=== PATIENT | female | born 1960 | race Caucasian/White ===

== ENCOUNTER → 2018-09-26 | Outpatient (CLI) | payer BC ==
[~2018-09-26] MED LIST: CONESTTC PV; DHEA PO; FLUO10 PO; IBUP600 PO; LEVSOD25 PO; META800 PO; Prednisone20 MG PO; VENL25
[2018-09-28 15:07] LABS: HPV 16 Negative (Negative); HPV 18 Negative (Negative); HPV OTHER HR TYPES Negative (Negative)
== END ==
LOC: LAB 11:54 → LAB SHORT 11:54
PROVIDERS: Nurse Practitioner Obstetrics & Gynecology
DX: Z01.419 Encounter for gynecological examination (general) (routine) without abnormal findings (principal)
CPT/HCPCS: 87624; G0123

== ENCOUNTER → 2019-11-19 | Outpatient (CLI) | payer BC ==
[2019-11-19 13:47] LABS: BASOPHILS ABSOLUTE AUTO 0.04 K/mm3 (0.00-0.23); BASOPHILS PERCENT AUTO 0 % (0-2); EOSINOPHILS ABSOLUTE AUTO 0.02 K/mm3 (0.00-0.68); EOSINOPHILS PERCENT AUTO 0 % (0-6); Hemoglobin 13.1 g/dL (11.5-16.0); IMMATURE GRAN ABSOLUTE AUTO 0.03 K/mm3 (0.00-0.10); IMMATURE GRAN PERCENT AUTO 0 % (0-1); LYMPHOCYTES ABSOLUTE AUTO 0.88 K/mm3 (0.84-5.20); LYMPHOCYTES PERCENT AUTO 7 % (21-46); MONOCYTES ABSOLUTE AUTO 1.02 K/mm3 (0.16-1.47); MONOCYTES PERCENT AUTO 8 % (4-13); Mean Corpuscular HGB Conc 33.6 g/dL (31.5-36.5); Mean Corpuscular Volume 89 fL (80-100); Mean Platelet Volume 10.5 fL (9.1-12.4); NEUTROPHILS ABSOLUTE AUTO 11.06 K/mm3 (1.96-9.15); NEUTROPHILS PERCENT AUTO 85 % (41-73); Platelet Count 207 K/mm3 (150-400); RDW Coefficient Variation 12.2 % (11.7-14.2); RDW Standard Deviation 39.3 fL (35.1-46.3); Red Blood Cell Count 4.37 M/mm3 (3.80-5.20); White Blood Cell Count 13.05 K/mm3 (4.00-11.30)
[2019-11-19 14:00] LABS: Anion Gap 8 mmol/L (6-16); Blood Urea Nitrogen 11 mg/dL (8-24); Bun/Creatinine Ratio 14.3 (12.0-20.0); CO2, Blood 27 mmol/L (21-32); Calcium, Blood 9.2 mg/dL (8.5-10.1); Chloride, Blood 102 mmol/L (98-108); Creatinine, Blood 0.77 mg/dL (0.40-1.00); Glomerular Filtration Rate >60 (60-); Glucose, Blood 103 mg/dL (70-99); Sodium, Blood 137 mmol/L (136-145)
== END | disposition home or self-care (01) ==
LOC: LAB SHORT 13:42 → LAB EV 13:42
PROVIDERS: Family Medicine
DX: R10.9 Unspecified abdominal pain (principal)
CPT/HCPCS: 80048; 83690; 85025

== ENCOUNTER 2019-11-27 16:10 | Inpatient (IN) | payer BC ==
[~2019-11-27] VITALS: Ht 172.7 cm; Wt 91.4 kg
[~2019-11-27 16:10] MED LIST changes: -COMPOUND DRUG PO; -ESTRADIOL/PROGESTERO; -ESTRADIOL0.5 MG PO; -Metoprolol Tart25 MG PO; -NP THYROID60 MG PO; -PROGESTERONE100 M1 PO; -XARELTO20 MG PO
[2019-11-27] MEDS ORDERED: PROGESTERONE100 M1 PO (16:32)
[2019-11-27 16:49] LABS: BASOPHILS ABSOLUTE AUTO 0.08 K/mm3 (0.00-0.23); BASOPHILS PERCENT AUTO 1 % (0-2); EOSINOPHILS PERCENT AUTO 2 % (0-6); Hematocrit 40.7 % (33.0-51.0); Hemoglobin 13.2 g/dL (11.5-16.0); IMMATURE GRAN ABSOLUTE AUTO 0.03 K/mm3 (0.00-0.10); IMMATURE GRAN PERCENT AUTO 0 % (0-1); LYMPHOCYTES ABSOLUTE AUTO 1.87 K/mm3 (0.84-5.20); LYMPHOCYTES PERCENT AUTO 21 % (21-46); MONOCYTES ABSOLUTE AUTO 0.74 K/mm3 (0.16-1.47); MONOCYTES PERCENT AUTO 8 % (4-13); Mean Corpuscular HGB 29.6 pg (26.0-34.0); Mean Corpuscular HGB Conc 32.4 g/dL (31.5-36.5); Mean Corpuscular Volume 91 fL (80-100); NEUTROPHILS ABSOLUTE AUTO 5.94 K/mm3 (1.96-9.15); NEUTROPHILS PERCENT AUTO 67 % (41-73); Platelet Count 287 K/mm3 (150-400); RDW Coefficient Variation 11.9 % (11.7-14.2); Red Blood Cell Count 4.46 M/mm3 (3.80-5.20); White Blood Cell Count 8.86 K/mm3 (4.00-11.30)
[2019-11-27 16:59] LABS: Troponin I <0.015 ng/mL (0.000-0.040)
[2019-11-27 17:00] LABS: Alanine Aminotransfer (ALT/SGP 67 U/L (12-78); Albumin, Blood 3.6 g/dL (3.4-5.0); Albumin/Globulin Ratio 1.1 (0.8-1.8); Alk Phos 63 U/L (50-136); Anion Gap 2 mmol/L (6-16); Aspartate Aminotrans (AST/SGOT 51 U/L (12-37); Bilirubin, Total 0.2 mg/dL (0.1-1.0); Blood Urea Nitrogen 12 mg/dL (8-24); Bun/Creatinine Ratio 17.1 (12.0-20.0); CO2, Blood 28 mmol/L (21-32); Calcium, Blood 8.9 mg/dL (8.5-10.1); Chloride, Blood 112 mmol/L (98-108); Globulin, Blood 3.4 g/dL (2.2-4.0); Glomerular Filtration Rate >60 (60-); Glucose, Blood 112 mg/dL (70-99); Potassium, Blood 3.9 mmol/L (3.5-5.5); Sodium, Blood 142 mmol/L (136-145)
[2019-11-27] MEDS ORDERED: ESTRADIOL0.5 MG PO (21:04)
[2019-11-27] MEDS ORDERED: NP THYROID60 MG PO (21:06)
[2019-11-27] MEDS ORDERED: COMPOUND DRUG PO (21:07)
[2019-11-28 04:24] LABS: BASOPHILS ABSOLUTE AUTO 0.07 K/mm3 (0.00-0.23); BASOPHILS PERCENT AUTO 1 % (0-2); EOSINOPHILS ABSOLUTE AUTO 0.18 K/mm3 (0.00-0.68); EOSINOPHILS PERCENT AUTO 2 % (0-6); Hematocrit 39.2 % (33.0-51.0); Hemoglobin 12.7 g/dL (11.5-16.0); IMMATURE GRAN ABSOLUTE AUTO 0.02 K/mm3 (0.00-0.10); IMMATURE GRAN PERCENT AUTO 0 % (0-1); LYMPHOCYTES ABSOLUTE AUTO 1.85 K/mm3 (0.84-5.20); LYMPHOCYTES PERCENT AUTO 20 % (21-46); MONOCYTES ABSOLUTE AUTO 0.79 K/mm3 (0.16-1.47); MONOCYTES PERCENT AUTO 9 % (4-13); Mean Corpuscular HGB 29.6 pg (26.0-34.0); Mean Corpuscular HGB Conc 32.4 g/dL (31.5-36.5); Mean Corpuscular Volume 91 fL (80-100); Mean Platelet Volume 9.8 fL (9.1-12.4); NEUTROPHILS ABSOLUTE AUTO 6.21 K/mm3 (1.96-9.15); NEUTROPHILS PERCENT AUTO 68 % (41-73); Platelet Count 267 K/mm3 (150-400); RDW Coefficient Variation 12.2 % (11.7-14.2); Red Blood Cell Count 4.29 M/mm3 (3.80-5.20); White Blood Cell Count 9.12 K/mm3 (4.00-11.30)
[2019-11-28 04:45] LABS: Anion Gap 2 mmol/L (6-16); Blood Urea Nitrogen 7 mg/dL (8-24); Bun/Creatinine Ratio 9.5 (12.0-20.0); CO2, Blood 28 mmol/L (21-32); Calcium, Blood 8.1 mg/dL (8.5-10.1); Chloride, Blood 114 mmol/L (98-108); Creatinine, Blood 0.73 mg/dL (0.40-1.00); Glomerular Filtration Rate >60 (60-); Glucose, Blood 119 mg/dL (70-99); Potassium, Blood 3.9 mmol/L (3.5-5.5); Sodium, Blood 144 mmol/L (136-145)
[2019-11-28] MEDS ORDERED: ESTRADIOL/PROGESTERO ×2 (06:17→06:18)
--- NOTE | 2019-11-28 07:27 | NUR ---
SHIFT SUMMARY: PT ARRIVED TO ROOM ICU 14 A+O, VSS. ESMOLOL AT 200 mcg/kg WITH HR 130. PT DENIED CP, SOB OR ANY OTHER S/S. A CALL FROM [facility] HOSPITALIST WHO STATED THAT IT WAS MENTIONED TO START PT ON DIGITALIS. A CALL MADE TO HOSPTIALIST DR. LOVE WHO STATED TO KEEP ESMOLOL gtt. PT'S HOME MEDICATIONS VERIFIED. PT PLEASANT AND USES CALL LIGHT APPROPRIATELY. BEDSIDE REPORT GIVEN TO LELIA MARTINEZ TO ASSUME CARE.
--- NOTE | 2019-11-28 08:08 | NUR ---
ASSUMED CARE RECIEVED REPORT FROM MICHELLE WILKERSON. PT IS IN AFLUTTER WITH A RATE OF 130 AND SHE IS ON AN ESMOLOL GTTP AT 200MCG/KG/MIN. SHE DENIES CP, SOB, DIZZINESS, AND NAUSEA. SCD'S ARE ON BILATERAL CALVES. BED IS LOW AND LOCKED. CALL LIGHT WITHIN REACH.
--- NOTE | 2019-11-28 14:08 | NUR ---
Echocardiogram complted.
--- NOTE | 2019-11-28 17:36 | NUR ---
CLINT/CARDIOVERSION DR. MORGAN PERFORMED A CLINT AND CARDIOVERSION. I DID THE CONSCIOUS MEDICATIONS, ESTEBAN DID THE RECORDING, RT WAS PRESENT, AND A [facility] NURSE WAS PRESENT HELPING WITH THE CLINT. SUCTION WAS READY, ZOLL PADS WERE APPLIED, AND A NC WAS PLACED ON THE PATIENT PROPHYLACTICALLY. SEE "ICU SEDATION MEDICATION FLOWSHEET" FOR TIMES AND DOSES OF MEDS GIVEN ALONG WITH SEDATION SCALES. PT RECEIVED A TOTAL OF 5MG OF VERSED AND 125MCG OF FENTANYL. PT WAS CONFIRMED TO HAVE NO CLOTS VIA CLINT, AND WAS CONVERTED TO SINUS RHYTHM AT 1630 WITH 50J. SHE HAD PACs PRESENT, BUT SINUS AND IN A RATE OF 64-72. A 12LEAD WAS PERFORMED SHOWING A SINUS RHYTHM S/P CARDIOVERSION. DURING THE PROCEDURE HER BLOOD PRESSURE DROPPED - 1614: 81/59 MAP 72, ESMOLOL GTTP OFF AT 1620, 1622: 86/50 MAP 64, FLUID BOLUS (0.9NS) STARTED AT 1624, 1626: 80/50 MAP 64, 1632: 79/49 MAP 56, ET... (SEE VS FOR REMAINING VS). PT DID RECEIVE A FULL LITER BOLUS, AND SHE IS NOW ON 0.5MG/MIN OF AMIODARONE. AFTER THE CARDIOVERSION PT WAS "LOOPY" FROM MEDICATIONS, BUT IS ORIENTED TO SELF, PLACE, AND SITUATION. SHE HAD 2+ PULSES IN HER DISTAL EXTREMETIES WELL. SHE IS NOW SLEEPING BEFORE EATING DINNER. WATED MEDS (WITH VIRAL MARTINEZ): 1MG FABRICIO, 75MCG FENTANYL BED LOW AND LOCKED. CALL LIGHT WITHIN REACH.
--- NOTE | 2019-11-28 17:58 | NUR ---
PT HAS BEEN INDEPENDENT IN ROOM, REPOSITIONING SELF NEEDED. I GAVE HER MANY PILLOWS, AND HAVE HELPED REPOSITIONED A FEW TIMES. CALL LIGHT HAS BEEN IN REACH. BED LOW AND LOCKED ALL DAY.
--- NOTE | 2019-11-28 18:39 | NUR ---
Per admit trigger, I met with Alba to qing prayer and spiritual support. At jackie of visit, she was anticipating cardiac proceedure within the hour. She was appreciaitve of calm assurance of excellent care and prayer. Prosthetist services will remain available.
--- NOTE | 2019-11-28 19:39 | NUR ---
SHIFT SUMMARY SEE PREVIOUS NOTE FOR CLINT AND CARDIOVERSION. PT DID HAVE A PERIOD OF TIME WITH A RIGHT BBB FOR APPROX 6-12 BEATS AT A RATE OF ~120-130bpm. SHE IS DOING WELL NOW ASIDE OF A LOW BP. SHE WILL BE BETTING A 2ND LITER OF FLUID AND HER AMIO IS NOW STOPPED. SHE REMAINS IN SINUS WITH PACs, RATE IN THE 60'S. DR. Allen IS AWARE OF BRIEF RHYTHM CHANGE. SHE IS A&O X 4, GREAT PULSES, GOOD COLOR, WARM EXTREMETIES, AND SHOWING NO SIGNS OF POOR PERFUSION. BED IS LOW AND LOCKED. CALL LIGHT WITHIN REACH. FAMILY INFORMED/EDUCATED.
--- NOTE | 2019-11-28 23:52 | NUR ---
START OF SHIFT: BEDSIDE REPORT FROM LELIA MARTINEZ. PT A+O X4, BP HYPOTENSIVE. HR 60 LELIA MARTINEZ REPORTED THAT AMIODARONE DC'D, PT TO RECIEVE 1L NS WO. AND FOR PT TO RECEIVE EVENING DOSE OF METOPROLOL PER DR. TRAN. PT REMAINS SLIGHTLY HYPOTENSIVE BUT IS ASYMPTOMATIC. PT, IN FACT, STATED, "I FEEL SO MUCH BETTER". PT STATED THAT SHE FELT VERY TIRED THO AND REQUESTED TO LET SLEEP. PT WAS VISITED BY HER CHILDREN WHO BROUGHT PT'S HOME MED. PT CURRENTLY SLEEPING. SATS 96% ON RA, BP 86/49 (61), HR 56. CALL LIGHT WITHIN REACH. WILL CONTINUE TO MONITOR.
--- NOTE | 2019-11-29 00:51 | NUR ---
UPDATE: PT AWAKENS EASILY. PT WITH NO COMPLAINTS. PT DENIES CP OR ANY OTHER DISCOMFORTS. PT STATED IS SLEEPING WELL. BP 87/55 (64), HR 60'S, SATS 96% ON RA.
--- NOTE | 2019-11-29 05:35 | NUR ---
REPORT GIVEN TO ROOM 362 RN. PT TRANSFERRED SELF TO WHEELCHAIR. PT TOLERATED WELL. PT DENIED DIZZINESS. VSS. TELEBOX IN PLACE. PT TRANSFERRED VIA W/C AND PCT TECH.
--- NOTE | 2019-11-29 05:36 | NUR ---
TRANSFER NOTE HANDOFF RECEIVED FROM ICU NURSE [place]. FULL CODE. PT TRANSFERED TO FLOOR VIA WHEELCHAIR. CALL BUTTON WITHIN REACH. PT ORIENTED TO UNIT
[2019-11-29] MEDS ORDERED: Metoprolol Tart25 MG PO (12:46)
[2019-11-29] MEDS ORDERED: XARELTO20 MG PO (12:47)
--- NOTE | 2019-11-29 17:51 | NUR ---
PT DOING WELL. AOX4 AND COOPERATIVE OF CARE. NO CHANGES NOTED TO DAY IN HEART RHYTM. PT IS BEING MONITORED ONE MORE DAY PER ASSEMBLER CATERPILLAR SPIDER. PT HAS BEEN UP FOR WALKS AROUND THE [place] AND TAKEN A SHOWER. PT STATES SHE STILL FEELS VERY TIRED AND IS HOPING SHE GETS MORE ENERGY BACK. PT SITTING IN ROOM EATING DINNER NOT DISTRESS NOTED.
--- NOTE | 2019-11-30 06:31 | NUR ---
SHIFT SUMMARY PT IS A 59 Y/O FEMALE, ADMITTED FOR NEW ONSET AFIB. THE PT REPORTS THAT SHE IS FEELING "MUCH BETTER", AND DENIES ANY CHEST PAIN, PALPITATIONS, EPISODES OF DIZZINESS, OR SOB. VITAL SIGNS STABLE. TELE MONITOR SHOWED NSR IN THE 80S. PT SLEPT WELL THROUGH THE NIGHT. NO OTHER ACUTE CHANGES IN PT CONDITION NOTED. WILL CONTINUE TO MONITOR AND TREAT PER EMAR UNTIL HAND OFF TO DAY SHIFT RN.
--- NOTE | 2019-11-30 14:03 | NUR ---
DISCHARGE DISCHARGE MEDICATIONS AND INSTRUCTIONS EXPLAINED TO PATIENT. PATIENT STATED UNDERSTANDING. PATIENT TO SET UP NEW PCP SHE DOES NOT WANT AN APPOINTMENT WITH HER CURRENT ONE. DR. MORGAN CHECKED IN WITH PATIENT BEFORE DISCHARGE. [facility] WILL CALL PATIENT AT HOME TO SCHEDULE FOLLOW UP IN THE FIRST WEEK OF DECEMBER. IV REMOVED WITHOUT DIFFICULTY. BELONGINGS WITH PATIENT. PATIENT AMBULATED TO PRIVATE VEHICLE.
== END 2019-11-30 13:40 | disposition home or self-care (01) | DRG 309 ==
LOC: ER 16:10 → ICUW 16:11 → ERHOLD 16:11 → ICUW 11-28 02:55 → MEDS 11-28 16:09 → ICUW 11-28 16:09 → MEDS 11-29 05:30 → ENPENDDIS 11-29 11:22 → MEDS 11-30 13:40
PROVIDERS: Emergency Medicine; Nurse Practitioner Acute Care; ADMIT Hospitalist
DX: I48.92 Unspecified atrial flutter (principal); K57.92 Diverticulitis of intestine, part unspecified, without perforation or abscess without bleeding; I10 Essential (primary) hypertension; E03.9 Hypothyroidism, unspecified; L50.0 Allergic urticaria; I48.20 Chronic atrial fibrillation, unspecified
CPT/HCPCS: 36415; 71045; 80048; 80053; 83735; 84443; 84484; 85025; 92960; 93005; 93010; 93306; 93312; 93325; 96365; 96366; 96368; 96375; 99285-25; A9270; A9270-GY; G0378; J0153; J0282; J1200; J2250; J3010; J3475; J7030; J7060

== ENCOUNTER → 2019-11-27 | Outpatient (CLI) | payer BC ==
[~2019-11-27] MED LIST changes: +COMPOUND DRUG PO; +ESTRADIOL/PROGESTERO; +ESTRADIOL0.5 MG PO; -LEVSOD25 PO; +Metoprolol Tart25 MG PO; +NP THYROID60 MG PO; +PROGESTERONE100 M1 PO; +XARELTO20 MG PO
[2019-11-27 15:55] LABS: BASOPHILS ABSOLUTE AUTO 0.08 K/mm3 (0.00-0.23); BASOPHILS PERCENT AUTO 1 % (0-2); EOSINOPHILS ABSOLUTE AUTO 0.23 K/mm3 (0.00-0.68); EOSINOPHILS PERCENT AUTO 2 % (0-6); Hematocrit 40.7 % (33.0-51.0); Hemoglobin 13.5 g/dL (11.5-16.0); IMMATURE GRAN ABSOLUTE AUTO 0.03 K/mm3 (0.00-0.10); IMMATURE GRAN PERCENT AUTO 0 % (0-1); LYMPHOCYTES ABSOLUTE AUTO 2.15 K/mm3 (0.84-5.20); LYMPHOCYTES PERCENT AUTO 23 % (21-46); MONOCYTES ABSOLUTE AUTO 0.77 K/mm3 (0.16-1.47); MONOCYTES PERCENT AUTO 8 % (4-13); Mean Corpuscular HGB 29.8 pg (26.0-34.0); Mean Corpuscular HGB Conc 33.2 g/dL (31.5-36.5); Mean Corpuscular Volume 90 fL (80-100); Mean Platelet Volume 9.7 fL (9.1-12.4); NEUTROPHILS ABSOLUTE AUTO 6.13 K/mm3 (1.96-9.15); NEUTROPHILS PERCENT AUTO 65 % (41-73); Platelet Count 270 K/mm3 (150-400); RDW Coefficient Variation 12.2 % (11.7-14.2); RDW Standard Deviation 39.6 fL (35.1-46.3); Red Blood Cell Count 4.53 M/mm3 (3.80-5.20); White Blood Cell Count 9.39 K/mm3 (4.00-11.30)
[2019-11-27 16:16] LABS: Anion Gap 7 mmol/L (6-16); Blood Urea Nitrogen 9 mg/dL (8-24); Bun/Creatinine Ratio 10.5 (12.0-20.0); CO2, Blood 27 mmol/L (21-32); Calcium, Blood 9.5 mg/dL (8.5-10.1); Chloride, Blood 108 mmol/L (98-108); Creatinine, Blood 0.86 mg/dL (0.40-1.00); Glomerular Filtration Rate >60 (60-); Glucose, Blood 114 mg/dL (70-99); Potassium, Blood 3.5 mmol/L (3.5-5.5); Sodium, Blood 142 mmol/L (136-145); Thyroid Stimulating Hormone 1.007 uIU/mL (0.360-4.800)
== END ==
LOC: LAB SHORT 15:51 → LAB EV 15:51
PROVIDERS: Physician Assistant Surgical
DX: R42 Dizziness and giddiness (principal); R31.9 Hematuria, unspecified
CPT/HCPCS: 80048; 84443; 85025; 87086

== ENCOUNTER → 2020-01-31 | Outpatient (CLI) | payer BC ==
[~2020-01-31] MED LIST changes: +COMPOUND DRUG PO; +ESTRADIOL/PROGESTERO; +ESTRADIOL0.5 MG PO; +Metoprolol Tart25 MG PO; +NP THYROID60 MG PO; +PROGESTERONE100 M1 PO; +XARELTO20 MG PO
[2020-02-03 14:11] LABS: HPV 16 Negative (Negative); HPV 18 Negative (Negative); HPV OTHER HR TYPES Negative (Negative)
== END | disposition home or self-care (01) ==
LOC: LAB SHORT 19:12 → LAB 19:12
PROVIDERS: Obstetrics & Gynecology
DX: Z01.419 Encounter for gynecological examination (general) (routine) without abnormal findings (principal)
CPT/HCPCS: 87624; G0123

== ENCOUNTER → 2020-02-22 | Outpatient (CLI) | payer BC | END | disposition home or self-care (01) | LOC: PLD 09:13 → LAB SHORT 09:13 | DX: N84.1 Polyp of cervix uteri (principal) | CPT/HCPCS: 88305 ==

== ENCOUNTER → 2021-10-01 | Outpatient (CLI) | payer BC ==
[2021-10-01 17:38] LABS: BASOPHILS ABSOLUTE AUTO 0.04 K/mm3 (0.00-0.23); BASOPHILS PERCENT AUTO 1 % (0-2); EOSINOPHILS ABSOLUTE AUTO 0.04 K/mm3 (0.00-0.68); EOSINOPHILS PERCENT AUTO 1 % (0-6); Hematocrit 36.5 % (33.0-51.0); Hemoglobin 12.3 g/dL (11.5-16.0); IMMATURE GRAN ABSOLUTE AUTO 0.01 K/mm3 (0.00-0.10); IMMATURE GRAN PERCENT AUTO 0 % (0-1); LYMPHOCYTES ABSOLUTE AUTO 0.96 K/mm3 (0.84-5.20); LYMPHOCYTES PERCENT AUTO 17 % (21-46); MONOCYTES ABSOLUTE AUTO 0.29 K/mm3 (0.16-1.47); MONOCYTES PERCENT AUTO 5 % (4-13); Mean Corpuscular HGB 30.4 pg (26.0-34.0); Mean Corpuscular HGB Conc 33.7 g/dL (31.5-36.5); Mean Corpuscular Volume 90 fL (80-100); Mean Platelet Volume 10.4 fL (9.1-12.4); NEUTROPHILS ABSOLUTE AUTO 4.47 K/mm3 (1.96-9.15); NEUTROPHILS PERCENT AUTO 77 % (41-73); Platelet Count 205 K/mm3 (150-400); RDW Coefficient Variation 12.5 % (11.7-14.2); RDW Standard Deviation 41.5 fL (35.1-46.3); Red Blood Cell Count 4.05 M/mm3 (3.80-5.20); White Blood Cell Count 5.81 K/mm3 (4.00-11.30)
[2021-10-01 17:59] LABS: Alanine Aminotransfer (ALT/SGP 32 U/L (12-78); Albumin, Blood 3.8 g/dL (3.4-5.0); Albumin/Globulin Ratio 1.3 (0.8-1.8); Alk Phos 73 U/L (40-126); Anion Gap 9 mmol/L (6-16); Aspartate Aminotrans (AST/SGOT 19 U/L (12-37); Bilirubin, Total 0.6 mg/dL (0.1-1.0); Blood Urea Nitrogen 14 mg/dL (8-24); CO2, Blood 29 mmol/L (21-32); Calcium, Blood 8.9 mg/dL (8.5-10.1); Chloride, Blood 104 mmol/L (98-108); Creatinine, Blood 0.61 mg/dL (0.40-1.00); Glomerular Filtration Rate >60 (60-); Glucose, Blood 103 mg/dL (70-99); Potassium, Blood 3.9 mmol/L (3.5-5.5); Sodium, Blood 142 mmol/L (136-145); Total Protein, Blood 6.8 g/dL (6.4-8.2); Troponin I <0.017 ng/mL (0.000-0.040)
== END | disposition home or self-care (01) ==
LOC: LAB 17:33 → LAB SHORT 17:33
PROVIDERS: Physician Assistant
DX: M54.9 Dorsalgia, unspecified (principal)
CPT/HCPCS: 80053; 83880; 84484; 85025

== ENCOUNTER → 2023-01-05 | Outpatient (CLI) | payer BC | END | disposition home or self-care (01) | LOC: LAB 20:02 → LAB SHORT 20:02 | DX: N39.0 Urinary tract infection, site not specified (principal) | CPT/HCPCS: 87086 ==

== ENCOUNTER 2024-06-14 09:51 | Day surgery (SDC) | payer OTHER ==
[~2024-06-14] VITALS: Ht 167.6 cm; Wt 89.6 kg
[~2024-06-14 09:51] MED LIST changes: +Lactated Ringer's 1,000 ML IV ONE; +propofoL 50 ML IV ONE
[2024-06-14] MEDS ORDERED: THYR60 PO (10:36)
[2024-06-14] MEDS ORDERED: Lactated Ringer's 1,000 ML IV ONE ×2 (11:16→12:25)
[2024-06-14] MEDS ORDERED: Ondansetron HCl 2 MG / ML 2ML Vial ONE (12:02)
[2024-06-14] MEDS ORDERED: propofoL 50 ML IV ONE (12:03)
[2024-06-14] MEDS ORDERED: FentaNYL Citrate 50 MCG/ML 2 ML Injection ONE (12:06)
[2024-06-14 12:55] VITALS: BP 132/91
== END 2024-06-14 12:58 | disposition home or self-care (01) ==
LOC: ORSCSDS 09:51
PROVIDERS: Internal Medicine Gastroenterology
PROC: 0DJD8ZZ Inspection of Lower Intestinal Tract, Via Natural or Artificial Opening Endoscopic (ICD-10-PCS; principal; 2024-06-14 11:30)
DX: Z12.11 Encounter for screening for malignant neoplasm of colon (principal); K57.30 Diverticulosis of large intestine without perforation or abscess without bleeding; I48.0 Paroxysmal atrial fibrillation; E03.9 Hypothyroidism, unspecified; I10 Essential (primary) hypertension; F32.A Depression, unspecified
CPT/HCPCS: J2405; J2704; J3010; J7120